=== PATIENT | female | born 1970 | race African-American/Black ===

== ENCOUNTER 2021-04-30 03:21 | Emergency (ER) | payer MEDICAID ==
[~2021-04-30] VITALS: Ht 170.2 cm; Wt 100.0 kg
[2021-04-30 04:00] VITALS: BP 125/63
[2021-04-30] MEDS ORDERED: LEVETIRACETAM 500MG PREMIX 100 ML IV ONE (04:15)
[2021-04-30 04:42] LABS: BASOPHILS % 0.6 % (0.0-2.0); EOSINOPHILS % 2.5 % (0.0-5.0); HEMATOCRIT. 40.1 % (36.0-48.0); HEMOGLOBIN. 13.4 g/dL (12.0-16.0); LYMPHOCYTES % 17.4 % (20.0-50.0); MEAN CORPUSCULAR HEMOGLOBIN 28.4 pg (28.0-32.0); MEAN CORPUSCULAR VOLUME 84.9 fL (81.0-99.0); MEAN PLATELET VOLUME 7.9 fl (7.4-10.4); MONOCYTES % 7.6 % (2.0-8.0); NEUTROPHILS % 71.9 % (40.0-76.0); PLATELET 285 x1000/uL (130-400); RED BLOOD CELL COUNT 4.73 mill/uL (4.2-5.4); RED CELL DISTRIBUTION WIDTH 14.3 % (11.6-14.6)
[2021-04-30 04:56] LABS: CHLORIDE 106 mEq/L (98-107)
== END 2021-04-30 05:43 | disposition home or self-care (01) ==
LOC: ER 03:21
DX: R56.9 Unspecified convulsions (principal)
CPT/HCPCS: 36415; 70450; 80053; 85025; 93005; 96365; 99285; J1953